=== PATIENT | male | born 1945 | race African-American/Black ===

== ENCOUNTER 2020-11-13 13:35 | Outpatient (CLI) | payer OTHER | END 2020-11-13 23:00 | disposition home or self-care (01) | LOC: EDSEX 13:35 → MRI 13:35 | PROVIDERS: ATTEND Neurological Surgery | DX: M54.12 Radiculopathy, cervical region (principal); M54.6 Pain in thoracic spine; M54.16 Radiculopathy, lumbar region ==

== ENCOUNTER 2020-11-14 13:57 | Outpatient (CLI) | payer OTHER | END 2020-11-14 22:18 | disposition home or self-care (01) | LOC: MRI 13:57 → EDSEX 14:00 → MRI 14:00 | PROVIDERS: ATTEND Neurological Surgery | DX: M54.6 Pain in thoracic spine (principal) ==

== ENCOUNTER 2020-11-19 08:22 | Outpatient (CLI) | payer OTHER | END 2020-11-19 20:31 | disposition home or self-care (01) | LOC: CT 08:22 | PROVIDERS: ATTEND Neurological Surgery | DX: M47.812 Spondylosis without myelopathy or radiculopathy, cervical region (principal); M54.6 Pain in thoracic spine ==

== ENCOUNTER 2020-11-20 08:14 | Outpatient (CLI) | payer OTHER | END 2020-11-20 20:34 | disposition home or self-care (01) | LOC: CT 08:14 | PROVIDERS: ATTEND Neurological Surgery | DX: S32.008A Other fracture of unspecified lumbar vertebra, initial encounter for closed fracture (principal) ==